=== PATIENT | female | born 1955 | race African-American/Black ===

== ENCOUNTER 2016-12-17 11:52 | Emergency (ER) | payer OTHER ==
[~2016-12-17 11:52] MED LIST: ALLOPURINOL 30300 MG PO; ASPIRIN CHEWABL81 MG PO; AUGMENTIN875 MG PO; INDOCIN SR75 MG PO; LABETALOL HCL200 MG PO; LASIX80 MG PO; NEURONTIN100 MG PO; NITROQUIK SL0.4 MG SL; NORVASC10 MG PO; PHENERGAN25 M1 PO; PRINIVIL20 MG PO; SPIRIVA 185 PUFFS/IN INH; ZANTAC150 MG PO; ZOCOR20 MG PO; ZYRTEC10 MG PO
== END 2016-12-17 14:56 | disposition home or self-care (01) ==
LOC: FER 11:52
DX: T78.40XA Allergy, unspecified, initial encounter (principal); I10 Essential (primary) hypertension; J45.909 Unspecified asthma, uncomplicated; Z79.51 Long term (current) use of inhaled steroids; Z79.899 Other long term (current) drug therapy
CPT/HCPCS: J2930

== ENCOUNTER 2020-10-12 14:54 | Emergency (ER) | payer OTHER ==
[~2020-10-12 14:54] MED LIST changes: +ALLOPURINOL300 MG PO; +AMANTADINE100 MG PO; +AMOXICILLIN500 MG PO; +AUGMENTIN 875-1 EACH PO; +AVAPRO300 MG PO; +AZITHROMYCIN250 MG PO; +BREO ELLIPTA 11 EACH INH; +BRILINTA90 MG PO; +BUSPAR5 MG PO; +CENTRUM SILVER1 EAC1 PO; +CLARITIN10 MG PO; +COMPLETE FORMU1 EAC2 PO; +FLEXERIL10 MG PO; +FLONASE ALLER15.8 ML; +HCTZ12.5 MG PO; +HCTZ25 MG PO; +K-DUR20 MEQ PO; +KLOR-CON20 MEQ PO; +LEXAPRO 10MG TA10 MG PO; +LIPITOR40 MG PO; +MEDROL 4MG DOSEP4 MG PO; +MOTRIN600 MG PO; +NAPROXEN500 MG PO; +TRAMADOL HCL50 MG PO; +TRANDATE100 MG PO; +ULTRAM50 MG PO; +VENTOLIN HFA IN18 GM INH
[2020-10-12 16:02] LABS: BASOPHIL 0.6 % (0-2); EOSINOPHIL 3.9 % (0-5); HCT 38.6 % (37.0-47.0); HGB 11.8 g/dl (12.5-16.0); MCH 26.3 pg (25.0-31.0); MCHC 30.6 g/dL (32.0-36.0); MCV 86.2 fL (78.0-100.0); MONOCYTE 7.7 % (0-12); MPV 11.1 fL (6.0-9.5); NEUTROPHIL 68.5 % (41-80); NRBC 0; PLT 280 K/uL (150-400); RBC 4.48 M/uL (4.20-5.40); RDW 15.8 % (11.5-14.0); WBC 7.1 K/uL (4.0-10.5)
[2020-10-12 16:15] LABS: INR 1.05 (0.9-1.2); PTT 36.6 SECONDS (22.2-34.7)
[2020-10-12 16:23] LABS: BUN/CREAT RATIO (CALC) 25.6 RATIO; CREATININE 0.78 mg/dL (0.51-0.95); POTASSIUM 3.6 mmol/L (3.5-5.1)
== END 2020-10-12 17:36 | disposition home or self-care (01) ==
LOC: FER 14:54
PROVIDERS: Emergency Medicine
DX: I10 Essential (primary) hypertension (principal); Z86.79 Personal history of other diseases of the circulatory system; Z98.890 Other specified postprocedural states
CPT/HCPCS: 36415; 71045; 80048; 84484; 85025; 85610; 85730; 93005

== ENCOUNTER 2020-12-23 14:48 | Emergency (ER) | payer OTHER ==
[2020-12-23 17:25] LABS: BASOPHIL 0.4 % (0-2); EOSINOPHIL 5.2 % (0-7); HCT 37.3 % (37.0-47.0); HGB 11.6 g/dl (12.5-16.0); LYMPHOCYTE 18.3 % (15-48); MCHC 31.1 g/dL (32.0-36.0); MCV 86.7 fL (78.0-100.0); MONOCYTE 6.2 % (0-12); MPV 10.4 fL (6.0-9.5); NEUTROPHIL 69.5 % (41-80); NRBC 0; PLT 251 K/uL (150-400); RDW 15.9 % (11.5-14.0); WBC 8.1 K/uL (4.0-10.5)
[2020-12-23 17:44] LABS: ALBUMIN 3.3 g/dL (3.4-5.0); BILIRUBIN - TOTAL 0.2 mg/dL (0.2-1.0); BUN/CREAT RATIO (CALC) 21.1 RATIO; CREATININE 0.71 mg/dL (0.51-0.95); GLOBULIN (CALCULATION) 4.8 g/dL; POTASSIUM 3.6 mmol/L (3.5-5.1); TOTAL PROTEIN 8.1 g/dL (6.4-8.2)
[2020-12-23 19:25] LABS: BILIRUBIN NEGATIVE (NEGATIVE); BLOOD NEGATIVE Ery/uL (NEGATIVE); CLARITY CLEAR (CLEAR); COLOR YELLOW (YELLOW); GLUCOSE (U) NORMAL (NORMAL); LEUKOCYTES NEGATIVE Leu/uL (NEGATIVE); NITRITE NEGATIVE (NEGATIVE); PROTEIN NEGATIVE (NEGATIVE); UROBILINOGEN 0.2 mg/dL (0.2-1.0)
[2020-12-23] MEDS ORDERED: ULTRAM50 MG PO (19:51)
== END 2020-12-23 20:04 | disposition home or self-care (01) ==
LOC: FER 14:48
PROVIDERS: Nurse Practitioner Family
DX: S39.012A Strain of muscle, fascia and tendon of lower back, initial encounter (principal); J45.909 Unspecified asthma, uncomplicated; Z88.8 Allergy status to other drugs, medicaments and biological substances; Z86.73 Personal history of transient ischemic attack (TIA), and cerebral infarction without residual deficits; X50.1XXA Overexertion from prolonged static or awkward postures, initial encounter
CPT/HCPCS: 36415; 72110; 80053; 81003; 85025; J1100